=== PATIENT | female | born 1980 | race Two or more races ===

== ENCOUNTER 2019-04-13 11:00 | Emergency (ER) | payer MEDICAID, OTHER ==
[~2019-04-13] VITALS: Ht 165.1 cm; Wt 77.1 kg
[2019-04-13 11:48] LABS: Basophils # (auto) 0 uL; Basophils % (auto) 0.4 % (0.0-2.0); Eosinophils # (auto) 0.1 uL; Eosinophils % (auto) 1.5 % (0.0-7.0); Hematocrit 32.1 % (36.0-46.0); Hemoglobin 10.8 g/dL (12.2-16.2); Lymphocytes % (auto) 25.7 % (10.0-50.0); Mean Corpuscular Hemoglobin 28.6 pg (28.0-32.0); Mean Corpuscular Hgb Conc. 33.7 g/dL (32.0-36.0); Monocytes # (auto) 0.4 uL; Monocytes % (auto) 5.2 % (0.0-12.0); Neutrophils # (auto) 5.3 uL; Neutrophils % (auto) 67.2 % (37.0-80.0); Nucleated Red Blood Cells % 0.1 %; Platelet Count (auto) 282 10^3/uL (140-450); Red Blood Cells 3.78 10^6/uL (4.0-5.20); Red Cell Distribution Width 13.6 % (11.8-14.3); White Blood Cell 7.8 10^3/uL (4.4-10.8)
[2019-04-13] MEDS ORDERED: cloNIDine HCL 0.1 MG TAB ONE (11:51)
[2019-04-13 11:56] LABS: Albumin 3.7 g/dL (3.4-5.0); Calcium 8.1 mg/dL (8.5-10.1); Potassium 3.6 mmol/L (3.5-5.1)
[2019-04-13 11:59] LABS: BUN/Creatinine Ratio 11.3; Bilirubin, Total 0.4 mg/dL (0.2-1.0); Total Protein 7.9 g/dL (6.4-8.2)
[2019-04-13] MEDS ORDERED: cloNIDine HCL 0.1 MG TAB PO ONE (12:00)
[2019-04-13] MEDS ORDERED: hydrALAZINE HCL 20 MG/ML VL ONE (13:00)
[2019-04-13] MEDS ORDERED: hydrALAZINE HCL 20 MG/ML VL IV ONE (13:00)
[2019-04-13] MEDS ORDERED: ACETAMINOPHEN 500 MG TAB PO ONE (15:30)
[2019-04-13] MEDS ORDERED: NICARDIPINE 25MG/250ML BAG KIT 250 ML IV ONE (15:52)
[2019-04-13] MEDS ORDERED: NICARDIPINE 25MG/250ML BAG KIT 250 ML IV SCH (16:30)
[2019-04-13] MEDS ORDERED: HYDROcodone-ACET 5/325MG TAB PO ONE (17:30)
[2019-04-13] MEDS ORDERED: amLODIPine BESYLATE 5 MG TAB PO ONE (17:30)
[2019-04-13 20:39] VITALS: BP 155/98
== END 2019-04-13 20:48 | disposition home or self-care (01) ==
LOC: ER 11:00 → EDBD 11:00 → ER 20:48
DX: I10 Essential (primary) hypertension (principal); R73.9 Hyperglycemia, unspecified; E44.0 Moderate protein-calorie malnutrition; R51 Headache; Z68.28 Body mass index [BMI] 28.0-28.9, adult; Z32.02 Encounter for pregnancy test, result negative
CPT/HCPCS: 36415; 70450; 71046; 80053; 81002; 81025; 85025; 93005; 96365; 96366; 96375; 99284; J0360

== ENCOUNTER 2019-10-13 10:28 | Emergency (ER) | payer MEDICAID ==
[~2019-10-13] VITALS: Ht 157.5 cm; Wt 77.1 kg
[2019-10-13] MEDS ORDERED: cloNIDine HCL 0.1 MG TAB PO ONE (10:30)
[2019-10-13 10:40] VITALS: BP 168/100
[2019-10-13] MEDS ORDERED: HYDROcodone-ACET 5/325MG TAB PO ONE (11:15)
== END 2019-10-13 11:27 | disposition home or self-care (01) ==
LOC: ER 10:28 → EDBD 10:28 → ER 11:27
DX: I16.0 Hypertensive urgency (principal); I10 Essential (primary) hypertension; R51 Headache; E11.9 Type 2 diabetes mellitus without complications

== ENCOUNTER 2019-10-23 19:24 | Inpatient (IN) | payer MEDICAID ==
[~2019-10-23] VITALS: Ht 154.9 cm; Wt 77.6 kg
[2019-10-23] MEDS ORDERED: SODIUM CHLORIDE 0.9% 1,000 ML IVB ONE (19:55)
[2019-10-23] MEDS ORDERED: MORPHINE SULFATE 4 MG/ML SYR/VIAL IV ONE (20:00)
[2019-10-23] MEDS ORDERED: ONDANSETRON HCL 4 MG/2 ML VIAL IV ONE ×2 (20:00→21:00)
[2019-10-23 20:14] LABS: Urine Bacteria FEW /hpf (None Seen); Urine Blood Negative /uL (Negative); Urine Specific Gravity 1.016 (1.001-1.035); Urine WBC 1 /hpf (0 - 5)
[2019-10-23 20:25] LABS: Basophils # (auto) 0 10 ^3/uL (0-0.2); Basophils % (auto) 0.5 % (0.0-2.0); Eosinophils # (auto) 0.1 10 ^3/uL (0-0.8); Eosinophils % (auto) 1.1 % (0.0-7.0); Hematocrit 36.2 % (36.0-46.0); Hemoglobin 12.4 g/dL (12.2-16.2); Mean Corpuscular Hemoglobin 29.3 pg (28.0-32.0); Mean Corpuscular Hgb Conc. 34.2 g/dL (32.0-36.0); Mean Corpuscular Volume 85.8 fL (80.0-100.0); Monocytes # (auto) 0.6 10 ^3/uL (0-1.3); Monocytes % (auto) 6.3 % (0.0-12.0); Neutrophils # (auto) 6.8 10 ^3/uL (1.6-8.6); Neutrophils % (auto) 71.1 % (37.0-80.0); Platelet Count (auto) 271 10^3/uL (140-450); Red Blood Cells 4.22 10^6/uL (4.0-5.20); Red Cell Distribution Width 19.2 % (11.8-14.3); White Blood Cell 9.6 10^3/uL (4.4-10.8)
[2019-10-23 20:45] LABS: Albumin 3.8 g/dL (3.4-5.0); BUN/Creatinine Ratio 16.9; Calcium 9.5 mg/dL (8.5-10.1); Potassium 3.8 mmol/L (3.5-5.1)
[2019-10-23 20:47] LABS: Bilirubin, Total 0.3 mg/dL (0.2-1.0); Total Protein 7.9 g/dL (6.4-8.2)
[2019-10-23] MEDS ORDERED: HYDROmorphone HCL 2 MG/ML VL IV ONE (21:00)
[2019-10-23] MEDS ORDERED: DEXTROSE (50%) 50ML SYRG IV PRN (21:45)
[2019-10-23] MEDS ORDERED: cloNIDine HCL 0.1 MG TAB PO PRN (21:45)
[2019-10-23] MEDS ORDERED: DOCUSATE SOD 100 MG CAP PO PRN (21:45)
[2019-10-23] MEDS ORDERED: HYDROmorphone HCL 2 MG/ML VL IV PRN (21:45)
[2019-10-23] MEDS: ONDANSETRON HCL 4 MG/2 ML VIAL IV PRN (22:01)
[2019-10-23 22:30] VITALS: BP 136/68
[2019-10-23] MEDS: SODIUM CHLORIDE 0.9% 1,000 ML IV SCH (22:44)
[2019-10-23 22:51] VITALS: BP 136/68
[2019-10-24] MEDS: InsuLIN REG 1unit/0.01ml Soln (100units/ml) SC SCH ×6 (00:07→22:07)
[2019-10-24] MEDS: ACCU-CHEK COMFORT CURVE STRIP VI SCH ×6 (00:10→22:06)
[2019-10-24] MEDS: ONDANSETRON HCL 4 MG/2 ML VIAL IV PRN ×2 (05:00→19:55)
[2019-10-24] MEDS: MORPHINE SULFATE 4 MG/ML SYR/VIAL IV PRN ×2 (05:01→20:35)
[2019-10-24 05:22] VITALS: BP 155/88
[2019-10-24] MEDS ORDERED: FER325T PO (05:49)
[2019-10-24] MEDS ORDERED: AMLO10CA33 PO (05:49)
[2019-10-24] MEDS ORDERED: METF-372 PO (05:49)
[2019-10-24] MEDS ORDERED: HYDR12.56 PO (05:49)
[2019-10-24] MEDS ORDERED: LEV50T PO (05:49)
[2019-10-24] MEDS ORDERED: GLIP5TAB12 PO (05:49)
[2019-10-24] MEDS: SODIUM CHLORIDE 0.9% 1,000 ML IV SCH ×2 (06:14→17:05)
[2019-10-24 06:19] LABS: Basophils # (auto) 0 10 ^3/uL (0-0.2); Basophils % (auto) 0.2 % (0.0-2.0); Eosinophils # (auto) 0 10 ^3/uL (0-0.8); Hematocrit 35.2 % (36.0-46.0); Hemoglobin 11.8 g/dL (12.2-16.2); Mean Corpuscular Hemoglobin 28.6 pg (28.0-32.0); Mean Corpuscular Hgb Conc. 33.5 g/dL (32.0-36.0); Mean Corpuscular Volume 85.4 fL (80.0-100.0); Monocytes # (auto) 0.3 10 ^3/uL (0-1.3); Monocytes % (auto) 2.4 % (0.0-12.0); Neutrophils # (auto) 12.5 10 ^3/uL (1.6-8.6); Neutrophils % (auto) 90.4 % (37.0-80.0); Platelet Count (auto) 262 10^3/uL (140-450); Red Blood Cells 4.12 10^6/uL (4.0-5.20); Red Cell Distribution Width 18.6 % (11.8-14.3); White Blood Cell 13.8 10^3/uL (4.4-10.8)
[2019-10-24 06:42] LABS: Calcium 8.2 mg/dL (8.5-10.1); Potassium 3.9 mmol/L (3.5-5.1)
[2019-10-24 06:48] LABS: BUN/Creatinine Ratio 12.9
[2019-10-24 08:00] VITALS: BP 151/81
[2019-10-24] MEDS: cefTRIAXone 1GM/50ML D5W 50 ML IV SCH (09:50)
[2019-10-24] MEDS: HCTZ 25 MG TAB PO SCH (09:52)
[2019-10-24] MEDS: FERROUS SULFATE 325 MG TAB PO SCH (09:53)
[2019-10-24] MEDS: LEVOTHYROXINE SODIUM 50 MCG TAB PO SCH (09:53)
[2019-10-24] MEDS: HYDROcodone-ACET 5/325MG TAB PO PRN ×2 (11:27→15:33)
[2019-10-24 12:00] VITALS: BP 142/76
[2019-10-24 16:59] VITALS: BP 139/73
[2019-10-24] MEDS: ATORVASTATIN 20 MG TAB PO SCH (18:17)
[2019-10-24] MEDS ORDERED: LORazepam 2MG/ML-1ML VIAL IV PRN (19:30)
[2019-10-24 21:48] VITALS: BP 160/92
[2019-10-25] MEDS: ONDANSETRON HCL 4 MG/2 ML VIAL IV PRN ×3 (00:21→19:31)
[2019-10-25 04:41] LABS: Basophils # (auto) 0 10 ^3/uL (0-0.2); Basophils % (auto) 0.2 % (0.0-2.0); Eosinophils # (auto) 0.1 10 ^3/uL (0-0.8); Eosinophils % (auto) 0.9 % (0.0-7.0); Hematocrit 35.4 % (36.0-46.0); Hemoglobin 12.3 g/dL (12.2-16.2); Lymphocytes % (auto) 22.4 % (10.0-50.0); Mean Corpuscular Hemoglobin 29.8 pg (28.0-32.0); Mean Corpuscular Hgb Conc. 34.8 g/dL (32.0-36.0); Mean Corpuscular Volume 85.5 fL (80.0-100.0); Monocytes # (auto) 0.5 10 ^3/uL (0-1.3); Monocytes % (auto) 5.4 % (0.0-12.0); Neutrophils # (auto) 6.3 10 ^3/uL (1.6-8.6); Neutrophils % (auto) 71.1 % (37.0-80.0); Nucleated Red Blood Cells % 0.1 %; Platelet Count (auto) 268 10^3/uL (140-450); Red Blood Cells 4.14 10^6/uL (4.0-5.20); White Blood Cell 8.9 10^3/uL (4.4-10.8)
[2019-10-25 05:00] VITALS: BP 135/75
[2019-10-25 05:05] LABS: BUN/Creatinine Ratio 15.8; Calcium 8.5 mg/dL (8.5-10.1); Potassium 3.4 mmol/L (3.5-5.1)
[2019-10-25] MEDS: ACCU-CHEK COMFORT CURVE STRIP VI SCH ×4 (06:30→22:11)
[2019-10-25] MEDS: InsuLIN REG 1unit/0.01ml Soln (100units/ml) SC SCH ×4 (06:30→22:11)
[2019-10-25 08:24] VITALS: BP 145/77
[2019-10-25] MEDS: MORPHINE SULFATE 4 MG/ML SYR/VIAL IV PRN (08:49)
[2019-10-25] MEDS: HCTZ 25 MG TAB PO SCH (08:50)
[2019-10-25] MEDS: LEVOTHYROXINE SODIUM 50 MCG TAB PO SCH (08:50)
[2019-10-25] MEDS: FERROUS SULFATE 325 MG TAB PO SCH (08:50)
[2019-10-25] MEDS: cefTRIAXone 1GM/50ML D5W 50 ML IV SCH (08:50)
[2019-10-25] MEDS ORDERED: HYDROcodone-ACET 10/325MG TAB PO PRN (09:00)
[2019-10-25] MEDS ORDERED: POTASSIUM EFFERVESENT TAB 25 MEQ PO ONE (12:30)
[2019-10-25 13:00] VITALS: BP 134/79
[2019-10-25] MEDS: MORPHINE SULF INJ 2 MG/ML SYRINGE 1ML IV PRN ×2 (13:04→19:31)
[2019-10-25] MEDS: ATORVASTATIN 20 MG TAB PO SCH (16:55)
[2019-10-25 17:28] VITALS: BP 147/88
[2019-10-25] MEDS: ACETAMINOPHEN 325 MG TAB PO PRN (20:22)
[2019-10-25 21:51] VITALS: BP 154/89
[2019-10-26 05:00] VITALS: BP 134/85
[2019-10-26] MEDS: ACCU-CHEK COMFORT CURVE STRIP VI SCH ×2 (06:34→11:07)
[2019-10-26] MEDS: InsuLIN REG 1unit/0.01ml Soln (100units/ml) SC SCH ×2 (06:35→11:31)
[2019-10-26 09:00] VITALS: BP 152/86
[2019-10-26] MEDS: FERROUS SULFATE 325 MG TAB PO SCH (09:30)
[2019-10-26] MEDS: HCTZ 25 MG TAB PO SCH (09:31)
[2019-10-26] MEDS: cefTRIAXone 1GM/50ML D5W 50 ML IV SCH (09:32)
[2019-10-26] MEDS: LEVOTHYROXINE SODIUM 50 MCG TAB PO SCH (09:33)
[2019-10-26] MEDS: ACETAMINOPHEN 325 MG TAB PO PRN (09:45)
[2019-10-26 13:00] VITALS: BP 139/97
[2019-10-26 14:52] VITALS: BP 139/97
== END 2019-10-26 15:51 | disposition home or self-care (01) | DRG 347 ==
LOC: ER 19:24 → OVERFLOW 19:25 → WEST WING 22:30
PROVIDERS: ADMIT Hospitalist; ATTEND Internal Medicine Nephrology
DX: M48.062 Spinal stenosis, lumbar region with neurogenic claudication (principal); D72.829 Elevated white blood cell count, unspecified; E11.9 Type 2 diabetes mellitus without complications; E66.9 Obesity, unspecified; E78.5 Hyperlipidemia, unspecified; M51.26 Other intervertebral disc displacement, lumbar region; I10 Essential (primary) hypertension; I16.0 Hypertensive urgency; Z68.32 Body mass index [BMI] 32.0-32.9, adult
CPT/HCPCS: 36415; 70551; 72146; 72148; 74176; 80048; 80053; 80061; 81001; 81025; 82962; 83036; 85025; 85652; 86038; 86431; 87086; 93886; 96361; 96374; 96375; 96376; G0378; J0696; J1815; J2405